=== PATIENT | female | born 1990 | race Caucasian/White ===

== ENCOUNTER 2019-02-02 13:05 | Emergency (ER) | payer OTHER ==
[2019-02-02] MEDS ORDERED: NORMAL SALINE 1000 ML 1,000 ML IV ONE (14:26)
--- NOTE | 2019-02-02 14:40 | ER Document Report ---
ED Medical Screen (RME) - General Chief Complaint: Syncope Stated Complaint: SYNCOPE/HEAD INJURY Time Seen by Provider: 02/02/19 14:19 Mode of Arrival: Ambulatory Information source: Patient TRAVEL OUTSIDE OF THE [place] IN LAST 30 DAYS: No - HPI Patient complains to provider of: syncope Notes: 02/02/19 14:38 Patient is here with complaints of syncope. The patient states that she was at [employer] standing at the register when she felt nauseous like she was going to vomit. She then apparently had a syncopal episode where she was out for approximately 2 minutes. She hit the front of her head. She complains of a mild headache at this time. She is not on blood thinning medications. She is 15 weeks . She denies any chest pain or shortness of breath. She has been complaining of some cramping to her bilateral calves and soreness to her feet. She denies any abdominal pain. No nausea, vomiting, diarrhea. No vagi nal bleeding. She denies any unilateral numbness, tingling, weakness. No neck or back pain. Exam No distress, nontoxic appearing. Contusion to the forehead, no laceration. Nonfocal neurological exam. No midline spinal tenderness. Plan EKG, blood work, urine, venous Doppler of the bilateral lower extremities. An initial examination was made on the patient as part of the triage process, and it was determined a more comprehensive evaluation was necessary. Initial labs were ordered and patient was transferred to another provider in the ED who assumed care and finished evaluation and plan. - Related Data Allergies/Adverse Reactions: No Known Allergies Allergy (Verified 02/02/19 13:07) Past Medical History - Social History Chew tobacco use (# tins/day): No Frequency of alcohol use: Rare Renal/ Medical History: Denies: Hx Peritoneal Dialysis Physical Exam - Vital signs Vitals: Temp Pulse Resp BP Pulse Ox 98.7 F 93 16 124/67 100 02/02/19 13:16 02/02/19 13:16 02/02/19 13:16 02/02/19 13:16 02/02/19 13:16 Course - Vital Signs Vital signs: Temp Pulse Resp BP Pulse Ox 98.7 F 93 16 124/67 100 02/02/19 13:16 02/02/19 13:16 02/02/19 13:16 02/02/19 13:16 02/02/19 13:16
[2019-02-02 15:32] LABS: APPEARANCE,URINE CLOUDY; BILIRUBIN,URINE NEGATIVE (NEGATIVE); COLOR,URINE YELLOW; GLUCOSE, URINE NEGATIVE (NEGATIVE); KETONES,URINE NEGATIVE (NEGATIVE); LEUKOCYTE ESTERASE,URINE LARGE (NEGATIVE); NITRITE,URINE NEGATIVE (NEGATIVE); PROTEIN,URINE NEGATIVE (NEGATIVE); URINE SPECIFIC GRAVITY 1.018
[2019-02-02 15:34] LABS: ABSOLUTE EOSINOPHILS # (AUTO) 0.1 10^3/uL (0.0-0.6); ABSOLUTE LYMPHOCYTES (AUTO) 1.9 10^3/uL (0.5-4.7); ABSOLUTE MONOCYTES (AUTO) 0.5 10^3/uL (0.1-1.4); ABSOLUTE NEUT (AUTO) 7.2 10^3/uL (1.7-8.2); BASOPHILS % (AUTO) 0.2 % (0-2); EOSINOPHILS % (AUTO) 0.5 % (0-6); HEMATOCRIT 38.5 % (36.0-47.0); HEMOGLOBIN 13.3 g/dL (12.0-15.5); LYMPHOCYTES % (AUTO) 19.9 % (13-45); MEAN CORPUSCULAR HEMOGLOBIN 31.3 pg (27.0-33.4); MEAN CORPUSCULAR HGB CONC 34.6 g/dL (32.0-36.0); MEAN CORPUSCULAR VOLUME 90 fl (80-97); MONOCYTES % (AUTO) 4.9 % (3-13); PLATELET COUNT 167 10^3/uL (150-450); RED BLOOD COUNT 4.26 10^6/uL (3.72-5.28); RED CELL DISTRIBUTION WIDTH 14.1 % (11.5-14.0); SEGMENTED NEUTROPHILS % (AUTO) 74.5 % (42-78); TOTAL CELLS COUNTED % (AUTO) 100 %; WHITE BLOOD COUNT 9.7 10^3/uL (4.0-10.5)
[2019-02-02 15:57] LABS: ALANINE AMINOTRANSFERASE 9 U/L (9-52); ALBUMIN 4.1 g/dL (3.5-5.0); ALKALINE PHOSPHATASE 53 U/L (38-126); ANION GAP 7 (5-19); ASPARTATE AMINO TRANSFERASE 20 U/L (14-36); BILIRUBIN,DIRECT 0.3 mg/dL (0.0-0.4); BILIRUBIN,TOTAL 0.5 mg/dL (0.2-1.3); BLOOD UREA NITROGEN 7 mg/dL (7-20); CALCIUM 9.7 mg/dL (8.4-10.2); CARBON DIOXIDE 22 mmol/L (22-30); CHLORIDE 108 mmol/L (98-107); GLUCOSE 98 mg/dL (75-110); POTASSIUM 4.1 mmol/L (3.6-5.0); SODIUM 136.9 mmol/L (137-145); TOTAL PROTEIN 7.2 g/dL (6.3-8.2)
--- NOTE | 2019-02-02 17:08 | RADIOLOGY REPORT (SQ) ---
EXAM DESCRIPTION: VENOUS BILATERAL LOWER COMPLETED DATE/TIME: 02/02/2019 4:55 pm REASON FOR STUDY: leg pain, preg COMPARISON: None. TECHNIQUE: Dynamic and static sales scale and color images acquired of both lower extremity venous sy stems. Selected spectral images acquired with additional compression and augmentation maneuvers. Imag es stored on PACS. LIMITATIONS: None. FINDINGS: RIGHT LEG COMMON FEMORAL AND FEMORAL: Normal phasicity, compression and augmentation. No visualized echogenic m aterial on sales scale. No defects on color images. POPLITEAL: Normal compression and augmentation. No visualized echogenic material on sales scale. No de fects on color images. CALF VESSELS: Normal compression and augmentation. No visualized echogenic material on sales scale. No defects on color image. GSV AND SSV: Normal compression. No visualized echogenic material on sales scale. No defects on color images. ANY DEEP VENOUS INSUFFICIENCY: Not evaluated. ANY EVIDENCE OF POPLITEAL CYST: No. OTHER: No other significant finding. LEFT LEG COMMON FEMORAL AND FEMORAL: Normal phasicity, compression and augmentation. No visualized echogenic m aterial on sales scale. No defects on color images. POPLITEAL: Normal compression and augmentation. No visualized echogenic material on sales scale. No de fects on color images. CALF VESSELS: Normal compression and augmentation. No visualized echogenic material on sales scale. No defects on color images. GSV AND SSV: Normal compression. No visualized echogenic material on sales scale. No defects on color images. ANY DEEP VENOUS INSUFFICIENCY: Not evaluated. ANY EVIDENCE POPLITEAL CYST: No. OTHER: No other significant finding. IMPRESSION: 1. NO EVIDENCE DVT OR SVT IN EITHER LEG. TECHNICAL DOCUMENTATION: JOB ID: [id number] 1956[employer]- All Rights Reserved Reading location - IP/workstation name: [email or web address]
--- NOTE | 2019-02-02 18:45 | ER Document Report ---
ED General - General Chief Complaint: Syncope Stated Complaint: SYNCOPE/HEAD INJURY Time Seen by Provider: 02/02/19 14:19 Mode of Arrival: Ambulatory Notes: Patient is a 28-year-old female at 15 weeks without chronic medical problems is here with complaints of syncope. The patient states that she was at [employer] standing at the register when she felt nauseous like she was going to vomit. She then apparently had a syncopal episode where she was out for approximately 2 minutes. She hit the front of her head. She complains of a mild headache at this time. As a throbbing, global, constant headache although notes that it has improved since she got here to the emergency department. Nothing is been noted to improve or worsen the discomfort. She denies any injury to any other location during the fall. She is not on blood thinning medications. She denies any chest pain or shortness of breath. She has been complaining of some cramping to her bilateral calves and soreness to her feet which has been ongoing for several weeks. She denies any abdominal pain. She denies any focal weakness, numbness or confusion. No injury to her back, neck or abdomen. No vaginal bleeding. TRAVEL OUTSIDE OF THE [place] IN LAST 30 DAYS: No - HPI Onset: Just prior to arrival Onset/Duration: Sudden Quality of pain: Achy Severity: Mild Pain Level: 2 Associated symptoms: Nausea Exacerbated by: Denies Relieved by: Denies Similar symptoms previously: No Recently seen / treated by doctor: No - Related Data Allergies/Adverse Reactions: No Known Allergies Allergy (Verified 02/02/19 13:07) Past Medical History - General Information source: Patient - Social History Smoking Status: Never Smoker Chew tobacco use (# tins/day): No Frequency of alcohol use: Rare Drug Abuse: None Lives with: Spouse/Significant other Family History: Reviewed & Not Pertinent Patient has suicidal ideation: No Patient has homicidal ideation: No Renal/ Medical History: Denies: Hx Peritoneal Dialysis Review of Systems - Review of Systems Notes: Constitutional: Negative for fever. HENT: Negative for sore throat. Eyes: Negative for visual changes. Cardiovascular: Negative for chest pain. Positive for syncope Respiratory: Negative for shortness of breath. Gastrointestinal: Negative for abdominal pain, positive for nausea Genitourinary: Negative for dysuria. Musculoskeletal: Negative for back pain. Skin: Negative for rash. Neurological: Negative for headaches, weakness or numbness. 10 point ROS negative except as marked above and in HPI. Physical Exam - Vital signs Vitals: Temp Pulse Resp BP Pulse Ox 98.7 F 93 16 124/67 100 02/02/19 13:16 02/02/19 13:16 02/02/19 13:16 02/02/19 13:16 02/02/19 13:16 Interpretation: Normal Notes: PHYSICAL EXAMINATION: GENERAL: Well-appearing, well-nourished and in no acute distress. HEAD: Atraumatic, normocephalic. EYES: Pupils equal round and reactive to light, extraocular movements intact, sclera anicteric, conjunctiva are normal. ENT: nares patent, oropharynx clear without exudates. Moist mucous membranes. NECK: Normal range of motion, supple without lymphadenopathy LUNGS: Breath sounds clear to auscultation bilaterally and equal. No wheezes rales or rhonchi. HEART: Regular rate and rhythm without murmurs ABDOMEN: Soft, nontender, normoactive bowel sounds. No guarding, no rebound. No masses appreciated. EXTREMITIES: Normal range of motion, no pitting or edema. No cyanosis. NEUROLOGICAL: No focal neurological deficits. Moves all extremities spontaneously and on command. PSYCH: Normal mood, normal affect. SKIN: Warm, Dry, normal turgor, no rashes or lesions noted. Course - Re-evaluation Re-evalutation: 02/02/19 18:42 Presentation of syncope of unclear etiology although appears to be orthostasis. Patient did strike her head. No focal neurologic deficits on exam, no evidence of basilar skull fracture on exam without evidence of hemotympanum, raccoon eyes, or periauricular hematoma. No papilledema. Patient is not on anticoagula tion. GCS is 15. No loss of consciousness. No episodes of vomiting. Patient is therefore negative via [place] head CT criteria and CT imaging will not be obtained at this time. Patient is , bedside ultrasound shows viable intrauterine heart rate 136. Patient normotensive, alert, without focal neurologic deficits at time of arrival. Denies syncope was during exertion. No preceding symptoms of palpitations, chest pain, or shortness of breath. Patient asymptomatic at time of arrival. EKG is without evidence of HCOM, right heart strain, ST changes to suggest ischemia, prolong QTc, delta wave, epsilon wave, or Brugada syndrome. Patient denies any family history of sudden cardiac , personal history of of structural heart disease. Patient denies any symptoms to suggest an acute PE, TX, TAD, SAH, seizure, or acute GI bleed as the etiology of their syncope today. Venous Doppler was obtained of the bilateral lower extremities in triage due to patient's complaint of bilateral lower 70 cramping and pain and is noted to be normal without any evidence of DVT. Extremity on exam, no murmurs to suggest critical aortic stenosis as possible etiology. Based on overall clinical history, exam findings, vitals, and patients appearance, I feel it is safe for patient to be discharged home at this time with close outpatient follow-up and strict return precautions. Patient is in agreement with this plan, has verbalized indications for return to ED, and questions have been answered. 02/02/19 18:44 - Vital Signs Vital signs: Temp Pulse Resp BP Pulse Ox 98.7 F 93 16 124/67 100 02/02/19 13:16 02/02/19 13:16 02/02/19 13:16 02/02/19 13:16 02/02/19 13:16 - Laboratory Result Diagrams: 02/02/19 14:52 02/02/19 14:52 Laboratory results interpreted by me: 02/02/19 02/02/19 02/02/19 14:52 14:52 14:52 RDW 14.1 H Sodium 136.9 L Chloride 108 H Creatinine 0.41 L Urine Urobilinogen 2.0 H Ur Leukocyte Esterase LARGE H Urine Ascorbic Acid 40 H - Diagnostic Test Radiology reviewed: Reports reviewed - EKG Interpretation by Me Additional EKG results interpreted by me: 02/02/19 18:45 Sinus rhythm, rate 72. No ST elevations or persons. QTC is 421. Discharge - Discharge Clinical Impression: Syncope and collapse, Bilateral leg cramps, Second trimester Condition: Good Disposition: HOME, SELF-CARE Additional Instructions: You were seen today after an episode of passing out. Your EKG here is normal. At this time, we do not feel that your episode of passing out was from any life- threatening cause. Please drink plenty of fluids over the next several days. Return to emergency department if you have any further episodes of syncope, headache, weakness, numbness, chest pain, or shortness of breath. Please follow up closely with your primary care physician. Your blood work, ultrasound of your baby, and ultrasound of your legs is all reassuring today.
[2019-02-02 18:55] VITALS: BP 100/55
--- NOTE | 2019-02-02 20:04 | EKG REPORT ---
SEVERITY:- BORDERLINE ECG - SINUS RHYTHM PROBABLE LEFT ATRIAL ABNORMALITY : Confirmed by: Sarai Huffman MD 02-Feb-2019 20:03:21
== END 2019-02-02 18:55 | disposition home or self-care (01) ==
LOC: ER 13:05
DX: O9A.212 Injury, poisoning and certain other consequences of external causes complicating pregnancy, second trimester (principal); S09.90XA Unspecified injury of head, initial encounter; O26.892 Other specified pregnancy related conditions, second trimester; R55 Syncope and collapse; R25.2 Cramp and spasm; Z3A.15 15 weeks gestation of pregnancy; X58.XXXA Exposure to other specified factors, initial encounter
CPT/HCPCS: 93005; 99284; 96360; 36415; 82962; 85025; 80053; 81001; 84484; 93970; 93010; J7030